=== PATIENT | female | born 1930 | race Caucasian/White ===

== ENCOUNTER 2018-05-05 12:26 | Emergency (ER) | payer MEDICAID ==
[~2018-05-05] VITALS: Ht 152.4 cm; Wt 49.2 kg
[2018-05-05 12:37] VITALS: BP 183/86; PULSE 96; RESP 16; TEMP 97.7; O2SAT 99
[2018-05-05] MEDS ORDERED: TRAM50TA PO (12:49)
[2018-05-05] MEDS ORDERED: NEXI40CA PO (12:49)
[2018-05-05] MEDS ORDERED: FLUT1INH INH (12:52)
[2018-05-05] MEDS ORDERED: ALBU1.25 NEB (12:52)
[2018-05-05] MEDS ORDERED: ALPR.25 PO (12:52)
[2018-05-05] MEDS ORDERED: LORazepam 2 MG/ML VIAL IV PUSH ONE ×2 (13:00→15:15)
[2018-05-05 13:25] LABS: BASOPHIL # 0.1 TH/MM3 (0-0.2); BASOPHIL % 0.9 % (0.0-2.0); EOSINOPHIL % 0.2 % (0.0-4.0); HEMATOCRIT 37.7 % (35.0-46.0); HEMOGLOBIN 12.6 GM/DL (11.6-15.3); LYMPH % 13.1 % (9.0-44.0); LYMPHOCYTE # 1.4 TH/MM3 (1.0-4.8); MEAN CELL VOLUME 93.3 FL (80.0-100.0); MEAN CORPUSCULAR HEMOGLOBIN 31.3 PG (27.0-34.0); MEAN CORPUSCULAR HGB CONC 33.5 % (32.0-36.0); MEAN PLATELET VOLUME 8.8 FL (7.0-11.0); MONO % 10.2 % (0.0-8.0); MONOCYTE # 1.1 TH/MM3 (0-0.9); NEUT % 75.6 % (16.0-70.0); PLATELET COUNT 288 TH/MM3 (150-450); RED BLOOD COUNT 4.04 MIL/MM3 (4.00-5.30); RED CELL DISTRIBUTION WIDTH 14.1 % (11.6-17.2); WHITE BLOOD COUNT 10.6 TH/MM3 (4.0-11.0)
--- NOTE | 2018-05-05 13:28 | RADRPT ---
EXAM DATE: 05/05/2018 1:24 PM EDT AGE/SEX: 87 years / Female INDICATIONS: Short of breath. Cough & congestion. CLINICAL DATA: This is the patient's initial encounter. Patient reports that signs and symptoms have been present for 2 days and indicates a pain score of 0/10. MEDICAL/SURGICAL HISTORY: Chronic obstructive pulmonary disease. Hypercholesterolemia. Gastro esophageal reflux disease. Appendectomy. Hysterectomy. COMPARISON: No prior exams available for comparison. FINDINGS: Diffuse increased interstitial markings are noted bilaterally consistent with acute or chronic inters titial disease. The heart is mildly prominent. No focal alveolar consolidation is noted. CONCLUSION: Diffuse increased interstitial markings are noted bilaterally consistent with acute or chronic inters titial disease. Electronically signed by: Mark Corea MD 05/05/2018 1:27 PM EDT
[2018-05-05 13:32] LABS: CHLORIDE 100 MEQ/L (98-107); SODIUM (NA) 135 MEQ/L (136-145)
[2018-05-05 13:35] LABS: ALBUMIN 3.7 GM/DL (3.4-5.0); BICARBONATE 24.5 MEQ/L (21.0-32.0); BLOOD UREA NITROGEN 16 MG/DL (7-18); CALCIUM 8.9 MG/DL (8.5-10.1); GLUCOSE,RANDOM 102 MG/DL (74-106)
[2018-05-05 13:38] LABS: ALT (GPT) 21 U/L (10-53); AST (GOT) 18 U/L (15-37); CREATININE 0.91 MG/DL (0.50-1.00); GLOMERULAR FILTRATION RATE 59 ML/MIN (>89)
[2018-05-05 13:40] LABS: TOTAL BILIRUBIN ADULT 0.4 MG/DL (0.2-1.0); TOTAL PROTEIN 7.8 GM/DL (6.4-8.2)
[2018-05-05 13:41] LABS: ALKALINE PHOSPHATASE 74 U/L (45-117)
--- NOTE | 2018-05-05 13:49 | PD ---
HPI Chief Complaint: Respiratory Symptoms Time Seen by Provider: 12:43 Travel History International Travel<30 days: No Contact w/Intl Traveler<30days: No Traveled to known affect area: No History of Present Illness HPI This is an 87-year-old female who has a history of COPD who presents to the emergency department feeling more short of breath this morning, constant, moderate severity associated with a productive cough with clear sputum. She took an albuterol nebulizer this morning and her Brio inhaler but she continued to feel short of breath on the ride to her primary care physician so she came here instead. She says she also felt very anxious, jittery and she fell nervous and not herself. She denies any fevers or chills and denies any chest discomfort. PFSH Past Medical History Hx Anticoagulant Therapy: Yes (asa 81mg) High Cholesterol: Yes COPD: Yes Diabetes: No Diminished Hearing: No GERD: Yes Respiratory: Yes (copd) Tetanus Vaccination: Unknown ?: Not Past Surgical History Appendectomy: Yes Eye Surgery: Yes (CATARACT REMOVED IN LEFT EYE) Hysterectomy: Yes Social History Alcohol Use: No Tobacco Use: No Substance Use: No Allergies-Medications (Allergen,Severity, Reaction): Coded Allergies: quinine (Verified Allergy, Severe, confusion, 05/05/18) Reported Meds & Prescriptions Reported Meds & Active Scripts Active Reported Albuterol Neb (Albuterol Sulfate) 1.25 Mg/3 Ml Neb 1.25 Mg NEB QID NEB PRN Breo Ellipta Inh (Fluticasone/Vilanterol) 100-25 Mcg/Act Inh 1 Puff INH DAILY Use daily at the same time. Xanax (Alprazolam) 0.25 Mg Tab 0.25 Mg PO HS PRN Tramadol (Tramadol HCl) 50 Mg Tab 50 Mg PO DAILY PRN Nexium (Esomeprazole DR) 40 Mg Capdr 40 Mg PO DAILY Review of Systems Except as stated in HPI: all other systems reviewed are Neg Physical Exam Narrative GENERAL: Frail elderly female in no acute distress SKIN: Focused skin assessment warm and dry. HEAD: Atraumatic. Normocephalic. EYES: Pupils equal and round. No injection or drainage. ENT: Moist mucous membranes NECK: Trachea midline. CARDIOVASCULAR: Regular rate and rhythm. No murmur appreciated. RESPIRATORY: Rales in the right lower lung base, no increased work of breathing or accessory muscle use GASTROINTESTINAL: Abdomen soft, non-tender, nondistended. MUSCULOSKELETAL: No obvious deformities. NEUROLOGICAL: Awake and alert. No obvious cranial nerve deficits. Moving all extremities. PSYCHIATRIC: Appropriate mood and affect; insight and judgment normal. Data Data Last Documented VS Vital Signs Date Time Temp Pulse Resp B/P (MAP) Pulse Ox O2 Delivery O2 Flow Rate FiO2 05/05/18 12:44 18 99 Room Air 05/05/18 12:37 97.7 96 183/86 (118) Orders Orders Complete Blood Count With Diff (05/05/18 13:00) Comprehensive Metabolic Panel (05/05/18 13:00) Electrocardiogram (05/05/18 ) Chest, Pa & Lat (05/05/18 ) Lorazepam Inj (Ativan Inj) (05/05/18 13:00) Ct Thorax/ Chest Wo Iv Contras (05/05/18 ) B-Type Natriuretic Peptide (05/05/18 14:23) Labs Laboratory Tests Test 05/05/18 13:07 White Blood Count 10.6 TH/MM3 Red Blood Count 4.04 MIL/MM3 Hemoglobin 12.6 GM/DL Hematocrit 37.7 % Mean Corpuscular Volume 93.3 FL Mean Corpuscular Hemoglobin 31.3 PG Mean Corpuscular Hemoglobin Concent 33.5 % Red Cell Distribution Width 14.1 % Platelet Count 288 TH/MM3 Mean Platelet Volume 8.8 FL Neutrophils (%) (Auto) 75.6 % Lymphocytes (%) (Auto) 13.1 % Monocytes (%) (Auto) 10.2 % Eosinophils (%) (Auto) 0.2 % Basophils (%) (Auto) 0.9 % Neutrophils # (Auto) 8.0 TH/MM3 Lymphocytes # (Auto) 1.4 TH/MM3 Monocytes # (Auto) 1.1 TH/MM3 Eosinophils # (Auto) 0.0 TH/MM3 Basophils # (Auto) 0.1 TH/MM3 CBC Comment DIFF FINAL Differential Comment Blood Urea Nitrogen 16 MG/DL Creatinine 0.91 MG/DL Random Glucose 102 MG/DL Total Protein 7.8 GM/DL Albumin 3.7 GM/DL Calcium Level 8.9 MG/DL Alkaline Phosphatase 74 U/L Aspartate Amino Transf (AST/SGOT) 18 U/L Alanine Aminotransferase (ALT/SGPT) 21 U/L Total Bilirubin 0.4 MG/DL Sodium Level 135 MEQ/L Potassium Level 3.6 MEQ/L Chloride Level 100 MEQ/L Carbon Dioxide Level 24.5 MEQ/L Anion Gap 11 MEQ/L Estimat Glomerular Filtration Rate 59 ML/MIN B-Type Natriuretic Peptide 105 PG/ML MDM Medical Decision Making Medical Screen Exam Complete: Yes Emergency Medical Condition: Yes Interpretation(s) Afebrile, mild tachycardia, hypertensive No leukocytosis Electrolytes are reassuring BNP is 105 Last 24 hours Impressions Chest X-Ray 05/05/18 0000 Signed Impressions: CONCLUSION: Diffuse increased interstitial markings are noted bilaterally consistent with a cute or chronic interstitial disease. Chest CT 05/05/18 0000 Signed Impressions: CONCLUSION: 1. Evidence changes with moderate peribronchial thickening. I don't see alveol ar consolidation suggest inflammatory process. Differential Diagnosis COPD exacerbation, pneumonia, congestive heart failure, lung cancer, anxiety Narrative Course This is an 87-year-old female who presents to the emergency department with shortness of breath that has been going on for 2 days, worse today. She also has significant anxiety and appears to be having a panic attack on presentation. She was placed on a monitor and an IV was established. She was given a low-dose of Ativan and her symptoms improved. Labs are reassuring including a normal BNP. Chest x-ray and CT of the chest were performed which demonstrate peribronchial thickening but no pneumonia. Patient will be discharged on prednisone and azithromycin and will follow up with Dr. Bingham as an outpatient. Diagnosis Primary Impression: Acute bronchitis Qualified Codes: J20.9 - Acute bronchitis, unspecified Patient Instructions: General Instructions Additional Instructions: If you develop severe shortness of breath, chest pain, or difficulty breathing return to the emergency department. Use albuterol every 4 hours for the next 2 days. Then use as needed for wheezing. Complete your course of steroids. Complete your course of antibiotics. Follow up with your primary care physician in 2-3 days if your symptoms have not improved. Med/Other Pt SpecificInfo: Prescription(s) given Scripts Azithromycin (Azithromycin) 250 Mg Tab 250 MG PO DIRECTED for Infection, #6 TAB 0 Refills Take 2 tabs (500 mg) on day 1 then 1 tab daily x 4 days. Prov: Gregoria Sierra MD 05/05/18 Prednisone (Prednisone) 20 Mg Tab 20 MG PO BID for 5 Days, #10 TAB 0 Refills Prov: Gregoria Sierra MD 05/05/18 Disposition: 01 DISCHARGE HOME Condition: Stable Gregoria Sierra MD May 05, 2018 13:49
--- NOTE | 2018-05-05 14:19 | RADRPT ---
EXAM DATE: 05/05/2018 2:00 PM EDT AGE/SEX: 87 years / Female INDICATIONS: Short of breath. Evaluate for pneumonia. CLINICAL DATA: This is the patient's initial encounter. Patient reports that signs and symptoms have been present for 2 weeks and indicates a pain score of 0/10. MEDICAL/SURGICAL HISTORY: Chronic obstructive pulmonary disease. Gastroesophageal reflux disease. Appendectomy. Hysterectomy. RADIATION DOSE: 6.17 CTDI (mGy) COMPARISON: No prior exams available for comparison. TECHNIQUE: Multiple contiguous axial images were obtained through the chest without contrast. Image s were obtained in suspended respiration using multiple row detector helical technique. Using automa krishna exposure control and adjustment of the mA and/or kV according to patient size, radiation dose was kept as low as reasonably achievable to obtain optimal diagnostic quality images. FINDINGS: Moderate emphysematous changes are present in both lungs without consolidation. There is minimal kenton bronchial thickening in both lower lobes. There is no pleural effusion. There is no axillary adenopathy. There is no mediastinal adenopathy. Moderate vascular calcifications are noted. There is no pericardial effusion. Portion of the liver and spleen visualized are unremarkable. CONCLUSION: 1. Evidence changes with moderate peribronchial thickening. I don't see alveolar consolidation sugge st inflammatory process. Electronically signed by: Jerry Patten MD 05/05/2018 2:17 PM EDT
[2018-05-05] MEDS ORDERED: PRED20 PO (15:03)
[2018-05-05] MEDS ORDERED: AZIT250T3 PO (15:03)
[2018-05-05 15:49] VITALS: BP 141/69; PULSE 80; RESP 16; O2SAT 93
--- NOTE | 2018-05-06 18:14 | EKG ---
Date Performed: 05/05/2018 Time Performed: 13:31:10 PTAGE: 87 years EKG: Sinus rhythm RIGHT BUNDLE BRANCH BLOCK LEFT ANTERIOR FASCICULAR BLOCK ABNORMAL ECG NO PREVIOUS TRACING DOCTOR: Vilma Slater Interpretating Date/Time 05/06/2018 18:11:45
== END 2018-05-05 16:04 | disposition home or self-care (01) ==
LOC: PHED 12:26
DX: J20.9 Acute bronchitis, unspecified (principal); F41.9 Anxiety disorder, unspecified; I45.2 Bifascicular block; R94.31 Abnormal electrocardiogram [ECG] [EKG]; E78.00 Pure hypercholesterolemia, unspecified; J44.9 Chronic obstructive pulmonary disease, unspecified; K21.9 Gastro-esophageal reflux disease without esophagitis; Z79.82 Long term (current) use of aspirin; Z79.51 Long term (current) use of inhaled steroids; Z79.899 Other long term (current) drug therapy
CPT/HCPCS: 71046; 71250; 80053; 83880; 85025; 93005; 96374; 96376; 99285; J2060